=== PATIENT | female | born 1965 | race Caucasian/White ===

== ENCOUNTER 2024-07-30 03:25 | Observation (INO) ==
--- NOTE | 2024-07-30 03:45 | Emergency Department Note ---
ED Provider Note CHIEF COMPLAINT: [] HISTORY OF PRESENTING ILLNESS: [] REVIEW OF SYSTEMS: See HPI for pertinent positives and pertinent negatives. ALLERGIES: [] MEDICATIONS: [] PAST MEDICAL HISTORY: [] PHYSICAL EXAM: [] DIFFERENTIAL DIAGNOSIS: [] ED COURSE AND MEDICAL DECISION MAKING: HISTORY FROM INDEPENDENT HISTORIAN: [] MEDICATIONS GIVEN: [] MONITOR: Continuous vehicle monitor technician: Order was placed for continuous vehicle monitor technician. Patient was placed on the vehicle monitor technician and continuous pulse ox. Patient was noted to be in normal sinus rhythm at an initial rate of [] bpm per my interpretation. EKG: EKG was interpreted by myself as []. INTERPRETATION OF LABS: I interpreted the labs with full lab results as below in the lab section of this note. Pertinent lab results discussed in the MDM section below. INTERPRETATION OF IMAGING: Imaging studies were interpreted by myself and read by radiology as per the imaging section of this note. [] EXTERNAL RECORDS REVIEWED: [] CHRONIC MEDICAL/SOCIAL CONDITIONS AFFECTING CARE: [] ESCALATION OF CARE CONSIDERED: [] CONSULTATIONS: [] PROCEDURES: [] MDM SUMMARY: I examined the patient. An IV lock was placed and labs were drawn. []. The patient was educated on the treatment plan and the discharge instructions. The patient was discharged home in stable condition. DIAGNOSIS: [] The chart was completed utilizing [employer] Speech voice recognition software. Grammatical errors, random word insertions, pronoun errors, and incomplete sentences are an occasional consequence of this system due to software limitations, ambient noise, and hardware issues. Any formal questions or concerns about the content, text, or information contained within the body of this dictation should be directly addressed to the provider for clarification. TREATMENT PLAN/DISCHARGE INSTRUCTIONS: [] Past Med/Surg History Problem List (Updated 07/27/24 @ 08:29 by Salvatore Song DO) Strain of lumbar region (Acute) Lumbar radiculopathy, acute (Acute) Acute bronchitis due to human metapneumovirus (Acute) Social History Smoking Status: Current every day smoker Tobacco Type: Cigarettes Preferred Language: Khmer Feels Safe at Home: Yes Allergies Allergies Allergy/AdvReac Type Severity Reaction Status Date / Time No Known Allergies Allergy Verified 07/22/24 13:50 Home Meds Home Medications Medication Instructions Recorded Confirmed lamotrigine 150 mg tablet 150 mg PO DAILY 01/28/24 07/27/24 (Lamictal) levothyroxine 50 mcg capsule 50 mcg PO DAILY 01/28/24 07/27/24 spironolactone 50 mg tablet 50 mg PO DAILY 01/28/24 07/27/24 bupropion HCl 150 mg tablet,12 hr 150 mg PO QAM 07/27/24 07/27/24 sustained-release tizanidine 4 mg tablet 4 mg PO BID PRN Muscle Spasms 07/27/24 07/27/24 Previous Rx's Medication Instructions Recorded oxycodone 5 mg tablet 5 mg PO Q6H PRN pain #10 tabs 07/27/24 oxycodone 5 mg tablet 5 mg PO Q6H PRN pain #10 tabs 07/27/24 Results & Data (ED) Vital Signs Vital Signs - 24 hr 07/30/24 03:27 Temperature 36.3 C L Temperature Source Temporal Artery Scan Pulse Rate 61 Pulse Rhythm Regular Pulse Strength Normal Respiratory Rate 18 Respiratory Effort / Characteristics Non-Labored Spontaneous Respiratory Depth Normal Respiratory Pattern Regular Blood Pressure 150/94 H Blood Pressure Mean 112 Blood Pressure Position Sitting Pulse Oximetry 99 Oxygen Delivery Method Room Air Sepsis Recent Fever Within 48 Hours No Sepsis New/Unexplained Change in Mental Status N/A Sepsis Action Taken by Nursing No Action Required Discharge Plan Visit Data Chief Complaint: Back Injury/Pain Stated Complaint: SEVERE BACK PAIN ED Provider: Leander Hickman ED Midlevel Provider: Yany Atkins Forms Stand Alone Forms: [facility] VBI Vaccines Prescriptions Prescriptions: No Action levothyroxine 50 mcg capsule 50 mcg PO DAILY spironolactone 50 mg tablet 50 mg PO DAILY lamotrigine [Lamictal] 150 mg tablet 150 mg PO DAILY oxycodone 5 mg tablet 5 mg PO Q6H PRN (Reason: pain) Qty: 10 0RF oxycodone 5 mg tablet 5 mg PO Q6H PRN (Reason: pain) Qty: 10 0RF bupropion HCl 150 mg tablet sustained-release 12 hr 150 mg PO QAM tizanidine 4 mg tablet 4 mg PO BID PRN (Reason: Muscle Spasms) Referrals Referrals: Odette Cheng PA-C [Primary Care Provider] -
[2024-07-30] MEDS: LIDOCAINE 5% 1 PATCH TD STA (04:17)
[2024-07-30] MEDS: ACETAMINOPHEN 500 MG TAB PO STA (04:17)
[2024-07-30] MEDS: dexAMETHasone**PF** 10 MG/ML VIAL IV ONE (04:18)
[2024-07-30] MEDS: KETOROLAC TROMETHAMINE 15 MG/ML VIAL IV ONE (04:18)
[2024-07-30 04:29] LABS: Basophils # (auto) 0.04 K/uL (0.00-0.20); Basophils % (auto) 0.3 %; Eosinophils # (auto) 0.18 K/uL (0.00-0.50); Eosinophils % (auto) 1.3 %; Hemoglobin 15.2 g/dl (12.0-16.0); Immature Granulocytes % (auto) 0.7 %; Lymphocytes % (auto) 25.8 %; Mean Corpuscular Hemoglobin 32.5 pg (25.0-34.0); Mean Corpuscular Hgb Conc 35.3 g/dL (32.0-36.0); Mean Corpuscular Volume 91.9 fL (80.0-100.0); Mean Platelet Volume 9.3 fL (9.4-12.4); Monocytes # (auto) 0.96 K/uL (0.11-0.59); Monocytes % (auto) 7.1 %; Neutrophils # (auto) 8.78 K/uL (1.40-6.50); Neutrophils % (auto) 64.8 %; Platelet Count 438 K/uL (130-400); RDW Coefficient of Variation 12.5 % (11.5-14.5); RDW Standard Deviation 41.9 fL (36.4-46.3); Red Blood Count 4.68 M/uL (4.20-5.40); White Blood Count 13.56 K/ul (4.8-10.8)
[2024-07-30] MEDS: METHOCARBAMOL 500 MG TABLET PO STA (04:51)
[2024-07-30 04:53] LABS: Alanine Aminotransferase 42 U/L (7-52); Albumin Globulin Ratio 1.4 (0.9-2); Albumin Level 4.5 gm/dl (3.4-5.0); Alkaline Phosphatase 84 U/L (34-104); Anion Gap 10 (3-11); BUN Creatinine Ratio 15.5 (10-20); Bilirubin,Total 0.3 mg/dl (0.2-1.0); Blood Urea Nitrogen 15 mg/dl (6-23); Calcium 9.7 mg/dl (8.6-10.3); Carbon Dioxide 25 mmol/L (21-32); Chloride 96 mmol/L (98-107); Creatinine Clr Calc Pharmacy 75.7 ml/min; Globulin 3.3 gm/dl (2.5-4.0); Glucose 92 mg/dl (70-99(Fasting)); Sodium 131 mmol/L (136-145); Total Protein 7.8 gm/dl (6.0-8.3)
[2024-07-30] MEDS: MoRPHine SULFATE 4 MG/ML 1 ML CARP\\VIAL IV STA ×2 (05:14→06:26)
[2024-07-30 06:33] LABS: Potassium 4.9 mmol/L (3.5-5.1)
--- NOTE | 2024-07-30 06:40 | CT Scan Report ---
EXAM: CT lumbar spine wo con CLINICAL HISTORY: severe pain TECHNIQUE: Multiple contiguous axial images were obtained through the lumbar spine without IV contrast. Sagittal and coronal reformatted images were obtained from the axial data. CT scan was performed according to ALARA (as low as reasonably achievable). 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 Decreased disc height with end plate irregularities and end plate hyper-aatenuation seen at L4/L5 and L5/S1 levels. Multiple level anterior marginal osteophytes seen. Posterior disc bulges at L2/L3 and L3/L4 levels. Posterior disc osteophyte complex at L4/L5 and L5/S1 levels causing moderate to severe bilateral lateral recess and neural foraminal stenosis. Lumbar vertebral bodies are maintained in height and alignment. No vertebral destructive changes are seen. IMPRESSION: 1. Lumbar spondylosis. 2. Suggested MRI Lumbar spine for further evaluation. Electronically signed by Dhaval Dooley 07-30-2024 06:39 AM
--- NOTE | 2024-07-30 07:40 | History & Physical Report ---
Date of Service July 30, 2024 Assessment & Plan (1) Lumbar radiculopathy, acute: Plan: Lumbar spinal stenosis with radiculopathy Lumbar disc disease Ambulatory dysfunction secondary to above --Lumbar CT:Loss of lumbar lordotic curvature. Decreased disc height with end plate irregularities and end plate hyper-aatenuation seen at L4/L5 and L5/S1 levels. Multiple level anterior marginal osteophytes seen. Posterior disc bulges at L2/L3 and L3/L4 levels. Posterior disc osteophyte complex at L4/L5 and L5/S1 levels causing moderate to severe bilateral lateral recess and neural foraminal stenosis. Lumbar vertebral bodies are maintained in height and alignment. No vertebral destructive changes are seen. --MRI Lumbar Spine pending --Started on Medrol Dosepak --Pain control as needed --Orthopedic spine consulted --PT OT, fall precautions Leukocytosis Likely reactive No signs of infection Monitor for now Hyponatremia Hypochloremia Sodium 131 Gentle IV fluids Monitor electrolytes Recent metapneumovirus infection No symptoms currently Monitor Vitamin D deficiency Check vitamin D levels Continue supplements Other chronic conditions: Depression Adjustment disorder Hypothyroidism Bipolar disorder Continue home medications as able DVT Px: Code Status Disposition PT OT prior to discharge History of Present Illness Chief Complaint: Low back pain Primary Care Provider: Odette Cheng PA-C Patient is a 59-year-old female with history of depression, adjustment disorder, hypothyroidism, bipolar disorder, dyspepsia MARY stage I, vitamin D deficiency and other medical problems presents with history of ongoing worsening lower back pain since 1 week duration. States back pain radiating down both lower extremities resulting in ambulatory dysfunction. Denies any fall, trauma. Back pain worsens with activity. She has been recently started on prednisone taper course and muscle relaxant which only mildly improved. Also admits to have some numbness and tingling of lower extremities. She recently had some bronchitis secondary to metapneumovirus which currently resolved. Denies any history of chest pain, dyspnea, palpitations, dizziness, pedal edema, cough, fever, chills, fall, head trauma, headache, change in vision, nausea, vomiting, abdominal pain, diarrhea, dysuria, hematuria. Allergies Allergy/AdvReac Type Severity Reaction Status Date / Time No Known Allergies Allergy Verified 07/22/24 13:50 Home Medications Medication Instructions Recorded Confirmed Type lamotrigine 150 mg tablet 150 mg PO DAILY 01/28/24 07/30/24 History (Lamictal) levothyroxine 50 mcg capsule 50 mcg PO DAILY 01/28/24 07/30/24 History spironolactone 50 mg tablet 50 mg PO DAILY 01/28/24 07/30/24 History bupropion HCl 150 mg tablet,12 hr 150 mg PO QAM 07/27/24 07/30/24 History sustained-release oxycodone 5 mg tablet 5 mg PO Q6H PRN pain #10 tabs 07/27/24 07/30/24 Rx tizanidine 4 mg tablet 0.5 mg PO Q6H PRN Muscle Spasms 07/27/24 07/30/24 History Past Med/Surg History Problem List Strain of lumbar region (Acute) Lumbar radiculopathy, acute (Acute) Acute bronchitis due to human metapneumovirus (Acute) Social History Smoking Status: Former smoker Tobacco Type: Cigarettes Second Hand Exposure: No; Do You Dip or Chew Tobacco: No; Tobacco Cessation Education Requested by Patient: No Hx Alcohol Use: No Hx Substance Use: No Preferred Language: Martiniquais Communication Ability: Effective Pre Sales Architect Required: No Beliefs That Will Affect Care: None Current Living Situation: Spouse Other Information That Helps Us Care for You: No Feels Safe at Home: Yes Safety Concerns: Feels Safe At This Time Review of Systems Review of Systems: All systems reviewed & are unremarkable except as noted in HPI & below Physical Exam Physical Exam: Physical Exam: Vitals signs as noted above General Appearance:Moderately built and nourished, no apparent distress Head: normocephalic, Atraumatic Eyes: normal inspection, EOMI Neck: supple, Trachea midline Respiratory/Chest: Normal breath sounds, CTA, No accessory muscle use Cardiovascular: S1, S2, No murmur Abdomen/GI:Soft, Non tender, Bowel sounds present Extremities/Musculoskeletal:normal inspection, no edema, mild lower backwinder, + straight leg raise test Neurologic/Psych:AAOX3, grossly no focal neurological deficits Skin: normal color, warm Results & Data Results & Data Vital Signs (Past 12 Hours) Vital Signs Temp Pulse Pulse Resp BP BP Pulse Ox 07/30/24 06:30 56 L 20 158/92 H 96 07/30/24 06:00 56 L 20 147/78 H 97 07/30/24 05:30 68 20 155/59 H 98 07/30/24 05:00 64 20 169/84 H 98 07/30/24 04:30 68 20 165/97 H 98 07/30/24 03:27 36.3 C L 61 18 150/94 H 99 O2 Del Method 07/30/24 06:30 Room Air 07/30/24 06:00 Room Air 07/30/24 05:30 Room Air 07/30/24 05:00 Room Air 07/30/24 04:30 Room Air 07/30/24 03:27 Room Air Laboratory Results Short CBC 07/30/24 Range/Units 04:10 WBC 13.56 H (4.8-10.8) K/ul Hgb 15.2 (12.0-16.0) g/dl Hct 43.0 (37.0-47.0) % Plt Count 438 H (130-400) K/uL BMP 07/30/24 07/30/24 04:10 05:18 Sodium 131 L Potassium TNP 4.9 Chloride 96 L Carbon Dioxide 25 BUN 15 Creatinine 0.97 Glucose 92 Calcium 9.7 Liver Function 07/30/24 07/30/24 Range/Units 04:10 05:18 Total Bilirubin 0.3 (0.2-1.0) mg/dl AST TNP 21 ALT 42 (7-52) U/L Alkaline Phosphatase 84 (34-104) U/L Albumin 4.5 (3.4-5.0) gm/dl Diagnostic Findings Lumbar CT:Lumbar spondylosis. Lumbar disc disease, foraminal stenosis
[2024-07-30] MEDS: SODIUM CHLORIDE 0.9% 1,000 ML IV ONE (08:24)
[2024-07-30] MEDS ORDERED: methylPREDNISolone 4 MG TAB, 6 DAY TAPER PO SCH (09:55)
[2024-07-30] MEDS ORDERED: ONDANSETRON INJ 2 MG/ML 2 ML VIAL IV PRN (09:55)
[2024-07-30] MEDS ORDERED: POLYETHYLENE (MIRALAX) 17 GM PACK PO PRN (09:55)
[2024-07-30] MEDS ORDERED: DOCUSATE SODIUM 100 MG CAP PO PRN (09:55)
[2024-07-30] MEDS: tiZANidine HCL 4 MG TABLET PO PRN (10:44)
[2024-07-30] MEDS: oxyCODONE HCL IR 5 MG TAB (IMMEDIATE RELEASE) PO PRN (10:46)
[2024-07-30] MEDS: ACETAMINOPHEN 325 MG TAB PO PRN (10:46)
[2024-07-30] MEDS: buPROPion SR 150 MG TABCR PO SCH (10:47)
[2024-07-30] MEDS: SPIRONOLACTONE 25 MG TAB PO SCH (10:48)
[2024-07-30] MEDS: methylPREDNISolone 4 MG TAB PO SCH ×2 (10:48→12:23)
[2024-07-30] MEDS: CYCLOBENZAPRINE HCL 5 MG TAB PO ONE (13:19)
--- NOTE | 2024-07-30 14:49 | Magnetic Resonance Report ---
Exam: MR lumbar spine without contrast. History: Low back pain. Comparison: CT cervical spine correlate 30 July 2024 and plain film correlate 27 July 2024. Technique: Routine multiplanar multisequence MR images of the lumbar spine without contrast were obtained and reviewed. Findings: Note is made that the lowest fully formed intervertebral disc will be labeled L5-S1 for purposes of this dictation. Marrow signal demonstrates no occult fracture or edema. Decree signal changes ventral L4 and L5 vertebral bodies on all sequences corresponding to sclerotic changes on prior CT. Lumbar spine alignment is fairly well-maintained. Mild stepwise retrolisthesis L2 on L3 L3 on L4. Intervertebral disc demonstrate multilevel disc desiccation height loss with associated osteophytes most marked at the L4-L5 L5-S1 levels. Conus terminates at the L1 level with normal signal and caliber. Axial series demonstrate level by level: L1-L2 level demonstrates patent spinal canal and neuroforamina. L2-L3 level demonstrates mild ligamentum flavum thickening. Mild circumferential disc bulge. No significant spinal canal or foraminal narrowing. L3-L4 level demonstrates prominent bilateral facet joint fluid. Mild broad-based posterior disc bulge. Increased fluid sensitive signal along the central posterior annulus consistent with annular fissuring. Mild foraminal and spinal canal stenoses. L4-L5 level demonstrates ligamentum flavum thickening and facet arthropathy changes. Circumferential disc osteophyte complex with near complete effacement of the thecal sac CSF. This is consistent with moderate spinal canal narrowing. Additional moderate bilateral foraminal stenoses. L5-S1 level demonstrated circumferential disc osteophyte complex. Mild ligamentum flavum thickening and facet arthropathy changes. Moderate foraminal narrowing. Mild spinal canal narrowing. Included retroperitoneal structures are within normal limits. Paraspinous musculature is within normal limits. Impression: Multilevel degenerative changes with moderate spinal canal and foraminal stenoses most marked at the L4-L5 L5-S1 levels. No acute process. Please see above for details. Electronically signed by Cricket Antonio 07-30-2024 2:49 PM
[2024-07-30 15:20] LABS: Appearance Urine Clear (Clear); Bilirubin Urine Negative (Negative); Blood Urine Negative (Negative); Color Urine Yellow; Glucose Urine UA Negative (Negative); Ketones Urine Negative (Negative); Leukocyte Esterase Urine Negative (Negative); Nitrite Urine Negative (Negative); Protein Urine Negative (Negative); Specific Gravity Urine 1.008 (1.000-1.030); Urobilinogen Urine Negative (Negative)
[2024-07-31] MEDS: LEVOTHYROXINE SODIUM 50 MCG TABLET PO SCH (05:58)
[2024-07-31] MEDS: methylPREDNISolone 4 MG TAB PO SCH ×2 (05:59→20:08)
[2024-07-31 07:09] LABS: Hematocrit (blood only) 42.8 % (37.0-47.0); Hemoglobin 14.9 g/dl (12.0-16.0); Mean Corpuscular Hemoglobin 32.7 pg (25.0-34.0); Mean Corpuscular Hgb Conc 34.8 g/dL (32.0-36.0); Mean Corpuscular Volume 94.1 fL (80.0-100.0); Mean Platelet Volume 9.2 fL (9.4-12.4); Platelet Count 440 K/uL (130-400); RDW Coefficient of Variation 12.5 % (11.5-14.5); RDW Standard Deviation 43.4 fL (36.4-46.3); Red Blood Count 4.55 M/uL (4.20-5.40); White Blood Count 16.77 K/ul (4.8-10.8)
[2024-07-31] MEDS: MoRPHine SULFATE 2 MG/ML CARP IV PRN (07:15)
[2024-07-31 07:23] LABS: Calcium 9.5 mg/dl (8.6-10.3); Magnesium 2.3 mg/dl (1.7-2.4); Potassium 4.2 mmol/L (3.5-5.1)
[2024-07-31 07:28] LABS: BUN Creatinine Ratio 18.4 (10-20); Creatinine Clr Calc Pharmacy 79.5 ml/min
[2024-07-31 07:54] LABS: Thyroid Stimulating Hormone 1.029 uIu/ml (0.300-4.500)
--- NOTE | 2024-07-31 08:25 | Consultation ---
Date of Consultation July 31, 2024 Assessment & Plan (1) Lumbar radiculopathy, acute: Maria Luz is a 59-year-old female who presented to the ER with subsequent admission due to back pain and lower extremity paresthesias. Her pain is improving overnight. She has multilevel degenerative disc disease in her lumbar spine with modest/mild foraminal narrowing. Would not recommend aggressive surgical intervention. We have discussed pursuing pain management consultation. She is in agreement to this. Activity as tolerated. Agree with physical therapy/Occupational Therapy consult. She can follow-up in our office as an on an as-needed basis. History of Present Illness Attending Physician: Abraham Thapa MD History of Present Illness This is a pleasant 59-year-old female who was admitted via the emergency room yesterday for back and bilateral lower extremity paresthesias. Symptoms have been ongoing for about a week. No accident, trauma, fall. She saw her family physician who gave her a muscle relaxant and oral steroids with modest improvement. She describes her symptoms as more back spasms rating down both legs right is worse than left. Nothing is really able to reproduce the symptoms. She states they are random. She has been taking Advil at home for pain control. Denies bowel or bladder dysfunction. 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 She states overnight she since admission she her symptoms are improved. She is anxious to return home. Allergies Allergy/AdvReac Type Severity Reaction Status Date / Time No Known Allergies Allergy Verified 07/22/24 13:50 Home Medications Medication Instructions Recorded Confirmed Type lamotrigine 150 mg tablet 150 mg PO DAILY 01/28/24 07/30/24 History (Lamictal) levothyroxine 50 mcg capsule 50 mcg PO DAILY 01/28/24 07/30/24 History spironolactone 50 mg tablet 50 mg PO DAILY 01/28/24 07/30/24 History bupropion HCl 150 mg tablet,12 hr 150 mg PO QAM 07/27/24 07/30/24 History sustained-release tizanidine 4 mg tablet 0.5 mg PO Q6H PRN Muscle Spasms 07/27/24 07/30/24 History oxycodone 5 mg tablet 5 mg PO Q6H PRN pain #10 tabs 08/01/24 Rx Patient History Medical History (Updated 08/01/24 @ 10:52 by Slime Peters DO) Lumbar radiculopathy, acute Lumbar spinal stenosis Acute bronchitis due to human metapneumovirus Social History Smoking Status: Former smoker Tobacco Type: Cigarettes Second Hand Exposure: No; Do You Dip or Chew Tobacco: No; Tobacco Cessation Education Requested by Patient: No Hx Alcohol Use: No Hx Substance Use: No Preferred Language: Latvian Communication Ability: Effective Pecan Mallow Dipper Required: No Beliefs That Will Affect Care: None Current Living Situation: Spouse Other Information That Helps Us Care for You: No Feels Safe at Home: Yes Safety Concerns: Feels Safe At This Time Review of Systems Review of Systems: All systems reviewed & are unremarkable except as noted in HPI & below Physical Exam Physical Exam: She is laying in bed in no acute distress She sits up and rolls over with the ease in no distress Alert and oriented x 3 Nontender to palpations of the midline lumbar spine and also nontender to ovat ion over the bilateral sciatic notch regions 5/5 bilateral EHL, dorsiflexion, plantar flexion, quadriceps, hamstrings, hip flexors No evidence of ankle clonus bilaterally Results & Data Vital Signs (Past 12 Hours) Vital Signs Temp Pulse Resp BP Pulse Ox O2 Del Method 07/31/24 07:46 36.6 C 59 L 18 143/81 H 96 Room Air Diagnostic Findings [place], [place] [phone] Magnetic Resonance Report Patient: TENA WATKINS Admit Date: 07/30/24 MR#: [id number] Address1: [facility] [address] Acct ID:[id number] Address2: Date: 1965 [facility] Zip: [place] [address] Age: 59 Location: 3N Sex: F Room/Bed: [facility] Att Phy: Abraham Thapa MD Diagnosis: BACK PAIN Samantha Phy: Odette Chneg PA-C Service Date: 07/30/24 Fam Phy: Interpreting Phy: Cricket Antonio MDAdmit Phy: Abraham Thapa MD Ordering Phy: Abraham Thapa MD cc: ~ Exam: MR lumbar spine without contrast. History: Low back pain. Comparison: CT cervical spine correlate 30 July 2024 and plain film correlate 27 July 2024. Technique: Routine multiplanar multisequence MR images of the lumbar spine without contrast were obtained and reviewed. Findings: Note is made that the lowest fully formed intervertebral disc will be labeled L5-S1 for purposes of this dictation. Marrow signal demonstrates no occult fracture or edema. Decree signal changes ventral L4 and L5 vertebral bodies on all sequences corresponding to sclerotic changes on prior CT. Lumbar spine alignment is fairly well-maintained. Mild stepwise retrolisthesis L2 on L3 L3 on L4. Intervertebral disc demonstrate multilevel disc desiccation height loss with associated osteophytes most marked at the L4-L5 L5-S1 levels. Conus terminates at the L1 level with normal signal and caliber. Axial series demonstrate level by level: L1-L2 level demonstrates patent spinal canal and neuroforamina. L2-L3 level demonstrates mild ligamentum flavum thickening. Mild circumferential disc bulge. No significant spinal canal or foraminal narrowing. L3-L4 level demonstrates prominent bilateral facet joint fluid. Mild broad-based posterior disc bulge. Increased fluid sensitive signal along the central posterior annulus consistent with annular fissuring. Mild foraminal and spinal canal stenoses. L4-L5 level demonstrates ligamentum flavum thickening and facet arthropathy changes. Circumferential disc osteophyte complex with near complete effacement of the thecal sac CSF. This is consistent with moderate spinal canal narrowing. Additional moderate bilateral foraminal stenoses. L5-S1 level demonstrated circumferential disc osteophyte complex. Mild ligamentum flavum thickening and facet arthropathy changes. Moderate foraminal narrowing. Mild spinal canal narrowing. Included retroperitoneal structures are within normal limits. Paraspinous musculature is within normal limits. Impression: Multilevel degenerative changes with moderate spinal canal and foraminal stenoses most marked at the L4-L5 L5-S1 levels. No acute process. Please see above for details. Electronically signed by Cricket Antonio 07-30-2024 2:49 PM Dictated: 07/30/24 1410 Transcribed: [facility], [place] [phone] CT Scan Report Patient: TENA WATKINS Admit Date: 07/30/24 MR#: [id number] Address1: [address] Acct ID:[id number] Address2: Date: 1965 [facility] Zip: [place] [address] Age: 59 Location: ED Sex: F Room/Bed: Att Phy: Diagnosis: SEVERE BACK PAIN Samantha Phy: Skylar [address] Service Date: 07/30/24 [facility] Phy: Interpreting Phy: Dhaval Clement MDAdmit Phy: Ordering Phy: Yany Atkins CRNP cc: ~ EXAM: CT lumbar spine wo con CLINICAL HISTORY: severe pain TECHNIQUE: Multiple contiguous axial images were obtained through the lumbar spine without IV contrast. Sagittal and coronal reformatted images were obtained from the axial data. CT scan was performed according to ALARA (as low as reasonably achievable). COMPARISON: 07/27/2024 06:48:14 SENIOR ETL DEVELOPER FINDINGS: Loss of lumbar lordotic curvature. Decreased disc height with end plate irregularities and end plate hyper-aatenuation seen at L4/L5 and L5/S1 levels. Multiple level anterior marginal osteophytes seen. Posterior disc bulges at L2/L3 and L3/L4 levels. Posterior disc osteophyte complex at L4/L5 and L5/S1 levels causing moderate to severe bilateral lateral recess and neural foraminal stenosis. Lumbar vertebral bodies are maintained in height and alignment. No vertebral destructive changes are seen. IMPRESSION: 1. Lumbar spondylosis. 2. Suggested MRI Lumbar spine for further evaluation. Electronically signed by Dhaval Clement 07-30-2024 06:39 AM Dictated: 07/30/24 05 Transcribed: [facility], [place] [phone] XRay Report Patient: TENA WATKINS Admit Date: 07/27/24 MR#: [id number] Address1: [address] Acct ID:[id number] Address2: Date: 1965 [facility] Zip: [place] [address] Age: 59 Location: ED Sex: F Room/Bed: Att Phy: Diagnosis: back pain Samantha Phy: [address] Service Date: 07/27/24 [facility] Phy: Interpreting Phy: Tavon Pinedo MDAdmit Phy: Ordering Phy: Salvatore Song DO cc: ~ EXAM: XR lumbar spine 2-3V CLINICAL HISTORY: lower back pain. TECHNIQUE: X-ray images of the lumbar spine were obtained in anteroposterior (AP), spot L5, and lateral projections. COMPARISON: No prior studies available for comparison. FINDINGS: Alignment: Straightening of the lumbar spine seen likely due to muscular spasm. No abnormal curvature, such as scoliosis or lordosis. Facet joints and sacroiliac joints appear normal. Mild grade 1 retrolisthesis of L5 over S1 vertebra noted. Vertebral Bodies: Vertebral bodies are of normal height and morphology. No evidence of fractures, compression deformities, or significant osseous lesions. Marginal osteophytes are seen at multiple levels. Intervertebral Disc Spaces: Reduced intervertebral disc spaces seen at L4-L5 and L5-S1 levels. Soft Tissues: Paraspinal soft tissues are of normal thickness. No evidence of paraspinal soft tissue swelling or mass effect. Additional Findings: Fecal loaded bowel loops. IMPRESSION: 1. Straightening of the lumbar spine seen likely due to muscular spasm. 2. Mild to moderate lumbar spondylosis. 3. Mild grade 1 retrolisthesis of L5 over S1 vertebra noted. Disclaimer: A subtle bone abnormality or fracture may not be readily apparent on X-rays, thus clinical correlation and further imaging including follow-up CT, MRI, or follow-up X-rays are advised as needed. Electronically signed by Tavon Pinedo 07-27-2024 08:18 AM Dictated: 07/27/24 0748 Transcribed:
[2024-07-31] MEDS: lamoTRIgine 100 MG TAB PO SCH (09:02)
[2024-07-31] MEDS: CHOLECALCIFEROL 25 MCG (1000 UNITS) TAB PO SCH (09:02)
--- NOTE | 2024-07-31 14:15 | Hospitalist Progress Note ---
Date of Service July 31, 2024 Assessment & Plan (1) Lumbar radiculopathy, acute: Plan: Lumbar spinal stenosis with radiculopathy Lumbar disc disease Ambulatory dysfunction secondary to above --Lumbar CT:Loss of lumbar lordotic curvature. Decreased disc height with end plate irregularities and end plate hyper-aatenuation seen at L4/L5 and L5/S1 levels. Multiple level anterior marginal osteophytes seen. Posterior disc bulges at L2/L3 and L3/L4 levels. Posterior disc osteophyte complex at L4/L5 and L5/S1 levels causing moderate to severe bilateral lateral recess and neural foraminal stenosis. Lumbar vertebral bodies are maintained in height and alignment. No vertebral destructive changes are seen. --MRI Lumbar Spine:Multilevel degenerative changes with moderate spinal canal and foraminal stenoses most marked at the L4-L5 L5-S1 levels. No acute process --continue Medrol Dosepak --Pain control as needed -- Appreciate orthopedic spine input --PT OT evaluation pending -- Pain management consulted for possible epidural injection Leukocytosis Likely reactive, due to steroids No signs of infection Monitor for now Hyponatremia Hypochloremia Sodium 134 today Received IV fluids Monitor electrolytes Recent metapneumovirus infection No symptoms currently Monitor Vitamin D deficiency Continue vitamin D supplements Other chronic conditions: Depression Adjustment disorder Hypothyroidism Bipolar disorder Continue home medications as able DVT Px: Code Status Disposition PT OT prior to discharge Admission and Anticipated Discharge Date Admission Date: July 30, 2024 Subjective Patient is seen and examined at bedside Lower back pain is controlled with medications No new complaints today Denies any chest pain, dyspnea, nausea, vomiting, abdominal pain Review of Systems Review of Systems: All systems reviewed & are unremarkable except as noted in Subjective Physical Exam Physical Exam: Physical Exam: Vitals signs as noted above General Appearance:Moderately built and nourished, no apparent distress Head: normocephalic, Atraumatic Eyes: normal inspection, EOMI Neck: supple, Trachea midline Respiratory/Chest: Normal breath sounds, CTA, No accessory muscle use Cardiovascular: S1, S2, No murmur Abdomen/GI:Soft, Non tender, Bowel sounds present Extremities/Musculoskeletal:normal inspection, no edema, mild lower back winder, + straight leg raise test Neurologic/Psych:AAOX3, grossly no focal neurological deficits Skin: normal color, warm Results & Data Results & Data Vital Signs (Past 12 Hours) Vital Signs Temp Pulse Resp BP Pulse Ox O2 Del Method 07/31/24 07:46 36.6 C 59 L 18 143/81 H 96 Room Air Laboratory Results Short CBC 07/31/24 Range/Units 06:43 WBC 16.77 H (4.8-10.8) K/ul Hgb 14.9 (12.0-16.0) g/dl Hct 42.8 (37.0-47.0) % Plt Count 440 H (130-400) K/uL BMP 07/31/24 06:43 Sodium 134 L Potassium 4.2 Chloride 99 Carbon Dioxide 26 BUN 16 Creatinine 0.87 Glucose 116 H Calcium 9.5 Urine 07/30/24 Range/Units Unknown Urine Color Yellow Urine Appearance Clear (Clear) Urine pH 8.0 H (4.5-7.5) Ur Specific Fielding 1.008 (1.000-1.030) Urine Protein Negative (Negative) Urine Glucose (UA) Negative (Negative)
[2024-07-31 20:29] VITALS: RESP 16
[2024-08-01] MEDS: methylPREDNISolone 4 MG TAB PO SCH (06:32)
[2024-08-01 07:11] VITALS: BP 157/84; PULSE 60; TEMP 97.3; O2SAT 99
[2024-08-01 07:12] LABS: Hemoglobin 14.9 g/dl (12.0-16.0); Mean Corpuscular Hgb Conc 33.9 g/dL (32.0-36.0); Mean Corpuscular Volume 94.6 fL (80.0-100.0); Mean Platelet Volume 9.4 fL (9.4-12.4); Platelet Count 430 K/uL (130-400); RDW Coefficient of Variation 13.3 % (11.5-14.5); RDW Standard Deviation 46.1 fL (36.4-46.3); Red Blood Count 4.65 M/uL (4.20-5.40)
[2024-08-01 07:27] LABS: Calcium 9.4 mg/dl (8.6-10.3); Creatinine Clr Calc Pharmacy 63.4 ml/min
--- NOTE | 2024-08-01 09:06 | Hospitalist Progress Note ---
Date of Service August 01, 2024 Assessment & Plan (1) Lumbar radiculopathy, acute: Plan: Lumbar spinal stenosis with radiculopathy Lumbar disc disease Ambulatory dysfunction secondary to above --Lumbar CT:Loss of lumbar lordotic curvature. Decreased disc height with end plate irregularities and end plate hyper-aatenuation seen at L4/L5 and L5/S1 levels. Multiple level anterior marginal osteophytes seen. Posterior disc bulges at L2/L3 and L3/L4 levels. Posterior disc osteophyte complex at L4/L5 and L5/S1 levels causing moderate to severe bilateral lateral recess and neural foraminal stenosis. Lumbar vertebral bodies are maintained in height and alignment. No vertebral destructive changes are seen. --MRI Lumbar Spine:Multilevel degenerative changes with moderate spinal canal and foraminal stenoses most marked at the L4-L5 L5-S1 levels. No acute process --continue Medrol Dosepak --Pain control as needed -- Appreciate orthopedic spine input --PT OT evaluation -- Appreciate pain management input : Plan for epidural injection as outpatient Plan to be discharged home today Leukocytosis Likely reactive, due to steroids No signs of infection Monitor for now Hyponatremia Hypochloremia Sodium 134 today Received IV fluids Monitor electrolytes Recent metapneumovirus infection No symptoms currently Monitor Vitamin D deficiency Continue vitamin D supplements Other chronic conditions: Depression Adjustment disorder Hypothyroidism Bipolar disorder Continue home medications as able DVT Px: Code Status Disposition Home Admission and Anticipated Discharge Date Admission Date: July 30, 2024 Subjective Patient is seen and examined at bedside Low back pain much improved Offers no new complaints today Denies any chest pain, dyspnea, nausea, vomiting, abdominal pain Eager to get discharged Review of Systems Review of Systems: All systems reviewed & are unremarkable except as noted in Subjective Physical Exam Physical Exam: Physical Exam: Vitals signs as noted above General Appearance:Moderately built and nourished, no apparent distress Head: normocephalic, Atraumatic Eyes: normal inspection, EOMI Neck: supple, Trachea midline Respiratory/Chest: Normal breath sounds, CTA, No accessory muscle use Cardiovascular: S1, S2, No murmur Abdomen/GI:Soft, Non tender, Bowel sounds present Extremities/Musculoskeletal:normal inspection, no edema, 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
--- NOTE | 2024-08-01 10:54 | Pain Management Consultation ---
Date of Consultation August 01, 2024 Assessment & Plan (1) Lumbar spinal stenosis: (2) Lumbar radiculopathy, acute: Plan 1. I reviewed the patient's MRI with her in detail and at this time recommend L4-5 interlaminar epidural steroid injection. She was counseled on the risk, benefits, expectations and agrees to proceed. This will be performed as an outpatient. Currently working on coordinating with my office for later this week. 2. Patient wishes to be discharged today, will relay to the hospitalist team. Recommend discharge with current medications of oxycodone, Tylenol, Medrol Dosepak. 3. Recommend course of physical therapy as an outpatient. 4. Will follow-up with the patient as an outpatient. Thank you for this consultation. History of Present Illness Attending Physician: Abraham Thapa MD History of Present Illness 59-year-old female with 1 week history of 50% axial 50% right L5-S1 radicular symptoms without known trauma or injury. She reports pain is sharp shooting numbing tingling ranging between 4-7+ currently 6 out of 10. She reports mild improvement with oxycodone, tizanidine, and Medrol Dosepak. She denies any bowel or bladder incontinence, motor weakness, fever, foot drop, falls, or saddle anesthesia. She reports some issues with low back pain over the last decade but nothing consistent or to this magnitude. She denies prior evaluation for pain or any interventions. She reports pain is worse with activity better with rest and heat. She reports she would prefer to treat this conservatively rather than with surgery at this time. Pain Assessment Full Body Front + Back: 2 1. 2. [facility] Combined Pain Scale: 6-Mod to Severe - Significant limitations of ADLs. Hard to do anything Pain scale - at its best (0-10): 4 Pain scale - at its worst (0-10): 7 Allergies Allergy/AdvReac Type Severity Reaction Status Date / Time No Known Allergies Allergy Verified 07/22/24 13:50 Home Medications Medication Instructions Recorded Confirmed Type lamotrigine 150 mg tablet 150 mg PO DAILY 01/28/24 07/30/24 History (Lamictal) levothyroxine 50 mcg capsule 50 mcg PO DAILY 01/28/24 07/30/24 History spironolactone 50 mg tablet 50 mg PO DAILY 01/28/24 07/30/24 History bupropion HCl 150 mg tablet,12 hr 150 mg PO QAM 07/27/24 07/30/24 History sustained-release oxycodone 5 mg tablet 5 mg PO Q6H PRN pain #10 tabs 08/01/24 Rx tizanidine 2 mg tablet 2 mg PO Q8H PRN muscle spasticity 08/01/24 Rx #14 tabs Pain History Pain Intensity Pain scale - at its best (0-10): 4 Pain scale - at its worst (0-10): 7 Patient History Medical History (Updated 08/01/24 @ 10:52 by Slime Peters DO) Lumbar radiculopathy, acute Lumbar spinal stenosis Acute bronchitis due to human metapneumovirus Social History Smoking Status: Former smoker Tobacco Type: Cigarettes Second Hand Exposure: No; Do You Dip or Chew Tobacco: No; Hx Alcohol Use: No Hx Substance Use: No Preferred Language: Armenian Communication Ability: Effective Wrapper Rewinder Required: No Beliefs That Will Affect Care: None Current Living Situation: Spouse Feels Safe at Home: Yes Physical Exam 2 Physical Exam: Constitutional: Well-developed, well-nourished, healthy-appearing, normal weight Psych: Awake, alert, and oriented 3 with normal affect and mood. Recent memory appears grossly intact Eyes: Pupils are equally round and reactive to light with normal size pupils, eyelids appear normal Ear, nose, mouth, and throat: Moist nasal and oral membranes, lips and tongues appear normal, no external ear abnormalities are noted Neck: The trachea is midline without deviation Respiratory: Normal respiratory effort without distress, no audible wheezes or rhonchi CV: Normal S1 and S2, warm distal extremities Chest: Deferred GI/abdomen: Non-tender without guarding Musculoskeletal: Head is normocephalic and atraumatic, patient moved from sitting to standing with limited difficulty. Cervical: Lordotic curve: Normal Range of motion is normal with extension, flexion, side-bending, rotation Strength: Strength is grossly equal bilaterally with 5 out of 5 strength in all planes Lumbar: Lordotic curve: Slight loss of lumbar litters Range of motion is decreased with extension, acceptable flexion, side-bending, rotation Tenderness: Moderately tender over the axial midline bilateral left equal to right L4-S1 Facet provocation: Marginally positive bilaterally Straight leg raise: Negative bilaterally not worse with Achilles stretch Step-off injuries: None Strength: Strength is equal bilaterally with 5 out of 5 strength in all planes Sensation of lower extremities: Intact bilaterally Deep tendon reflexes: Rated at 2+ in bilateral L4 and S1 Myofascial spasm: Mild to moderate lumbar spasm. A few scattered discrete trigger points noted Greater trochanters: Nontender bilaterally Sacroiliac joints: Nontender bilaterally Pathologic reflexes noted: None Skin: No rashes, lesions, ulcers, or induration noted Neuro: No nystagmus noted, the tongue is midline, the patient is able to rotate their head bilaterally : Deferred Results (Pain Clinic) Diagnostic Review MRI: non enhanced, reports reviewed and findings discussed with patient MRI Findings: 07/30/24 Exam: MR lumbar spine without contrast. History: Low back pain. Comparison: CT cervical spine correlate 30 July 2024 and plain film correlate 27 July 2024. Technique: Routine multiplanar multisequence MR images of the lumbar spine without contrast were obtained and reviewed. Findings: Note is made that the lowest fully formed intervertebral disc will be labeled L5-S1 for purposes of this dictation. Marrow signal demonstrates no occult fracture or edema. Decree signal changes ventral L4 and L5 vertebral bodies on all sequences corresponding to sclerotic changes on prior CT. Lumbar spine alignment is fairly well-maintained. Mild stepwise retrolisthesis L2 on L3 L3 on L4. Intervertebral disc demonstrate multilevel disc desiccation height loss with associated osteophytes most marked at the L4-L5 L5-S1 levels. Conus terminates at the L1 level with normal signal and caliber. Axial series demonstrate level by level: L1-L2 level demonstrates patent spinal canal and neuroforamina. L2-L3 level demonstrates mild ligamentum flavum thickening. Mild circumferential disc bulge. No significant spinal canal or foraminal narrowing. L3-L4 level demonstrates prominent bilateral facet joint fluid. Mild broad-based posterior disc bulge. Increased fluid sensitive signal along the central posterior annulus consistent with annular fissuring. Mild foraminal and spinal canal stenoses. L4-L5 level demonstrates ligamentum flavum thickening and facet arthropathy changes. Circumferential disc osteophyte complex with near complete effacement of the thecal sac CSF. This is consistent with moderate spinal canal narrowing. Additional moderate bilateral foraminal stenoses. L5-S1 level demonstrated circumferential disc osteophyte complex. Mild ligamentum flavum thickening and facet arthropathy changes. Moderate foraminal narrowing. Mild spinal canal narrowing. Included retroperitoneal structures are within normal limits. Paraspinous musculature is within normal limits. Impression: Multilevel degenerative changes with moderate spinal canal and foraminal stenoses most marked at the L4-L5 L5-S1 levels. No acute process. Please see above for details.
--- NOTE | 2024-08-01 12:44 | Discharge Summary ---
Date of Service August 01, 2024 Admission HPI Per Admitting Provider Patient is a 59-year-old female with history of depression, adjustment disorder, hypothyroidism, bipolar disorder, dyspepsia MARY stage I, vitamin D deficiency and other medical problems presents with history of ongoing worsening lower back pain since 1 week duration. States back pain radiating down both lower extremities resulting in ambulatory dysfunction. Denies any fall, trauma. Back pain worsens with activity. She has been recently started on prednisone taper course and muscle relaxant which only mildly improved. Also admits to have some numbness and tingling of lower extremities. She recently had some bronchitis secondary to metapneumovirus which currently resolved. Denies any history of chest pain, dyspnea, palpitations, dizziness, pedal edema, cough, fever, chills, fall, head trauma, headache, change in vision, nausea, vomiting, abdominal pain, diarrhea, dysuria, hematuria. Admission Exam Per Admitting Provider Physical Exam: Vitals signs as noted above General Appearance:Moderately built and nourished, no apparent distress Head: normocephalic, Atraumatic Eyes: normal inspection, EOMI Neck: supple, Trachea midline Respiratory/Chest: Normal breath sounds, CTA, No accessory muscle use Cardiovascular: S1, S2, No murmur Abdomen/GI:Soft, Non tender, Bowel sounds present Extremities/Musculoskeletal:normal inspection, no edema, mild lower dry cans back tender, + straight leg raise test Neurologic/Psych:AAOX3, grossly no focal neurological deficits Skin: normal color, warm Principal Diagnosis Lumbar spinal stenosis with radiculopathy Lumbar disc disease Discharge Data Allergies Allergy/AdvReac Type Severity Reaction Status Date / Time No Known Allergies Allergy Verified 07/22/24 13:50 Consultations 07/30/24 06:36 ED Decision to Admit Stat 07/30/24 07:56 Consult Orthopedic Surgery Routine 07/31/24 08:28 Consult Pain Management Routine Procedures Performed Laboratory Results WBC 13.70 K/ul (4.8-10.8) H 08/01/24 05:28 RBC 4.65 M/uL (4.20-5.40) 08/01/24 05:28 Hgb 14.9 g/dl (12.0-16.0) 08/01/24 05:28 Hct 44.0 % (37.0-47.0) 08/01/24 05:28 MCV 94.6 fL (80.0-100.0) 08/01/24 05:28 MCH 32.0 pg (25.0-34.0) 08/01/24 05: MCHC 33.9 g/dL (32.0-36.0) 08/01/24 05: RDW Std Deviation 46.1 fL (36.4-46.3) 08/01/24 05: RDW Coeff of Estrellita 13.3 % (11.5-14.5) 08/01/24 05:28 Plt Count 430 K/uL (130-400) H 08/01/24 05:28 MPV 9.4 fL (9.4-12.4) 08/01/24 05:28 Immature Gran % (Auto) 0.7 % 07/30/24 04:10 Neut % (Auto) 64.8 % 07/30/24 04:10 Lymph % (Auto) 25.8 % 07/30/24 04:10 Sullivan % (Auto) 7.1 % 07/30/24 04:10 Eos % (Auto) 1.3 % 07/30/24 04:10 Baso % (Auto) 0.3 % 07/30/24 04:10 Neut # (Auto) 8.78 K/uL (1.40-6.50) H 07/30/24 04:10 Lymph # (Auto) 3.50 K/uL (1.20-3.40) H 07/30/24 04:10 Sullivan # (Auto) 0.96 K/uL (0.11-0.59) H 07/30/24 04:10 Eos # (Auto) 0.18 K/uL (0.00-0.50) 07/30/24 04:10 Baso # (Auto) 0.04 K/uL (0.00-0.20) 07/30/24 04:10 Immature Gran # (Auto) 0.10 K/uL (0.01-0.20) 07/30/24 04:10 Sodium 134 mmol/L (136-145) L 08/01/24 05:28 Potassium 4.0 mmol/L (3.5-5.1) 08/01/24 05:28 Chloride 98 mmol/L (98-107) 08/01/24 05:28 Carbon Dioxide 27 mmol/L (21-32) 08/01/24 05:28 Anion Gap 9 (3-11) 08/01/24 05:28 BUN 24 mg/dl (6-23) H 08/01/24 05:28 Creatinine 1.09 mg/dl (0.6-1.2) 08/01/24 05:28 Est Cr Clr Drug Dosing 63.4 ml/min 08/01/24 05:28 eGFR 58.16 08/01/24 05:28 BUN/Creatinine Ratio 22.0 (10-20) H 08/01/24 05:28 Glucose 105 mg/dl (70-99(Fasting)) H 08/01/24 05:28 Calcium 9.4 mg/dl (8.6-10.3) 08/01/24 05:28 Magnesium 2.3 mg/dl (1.7-2.4) 07/31/24 06:43 Total Bilirubin 0.3 mg/dl (0.2-1.0) 07/30/24 04:10 AST 21 U/L (13-39) 07/30/24 05:18 ALT 42 U/L (7-52) 07/30/24 04:10 Alkaline Phosphatase 84 U/L (34-104) 07/30/24 04:10 Total Protein 7.8 gm/dl (6.0-8.3) 07/30/24 04:10 Albumin 4.5 gm/dl (3.4-5.0) 07/30/24 04:10 Globulin 3.3 gm/dl (2.5-4.0) 07/30/24 04:10 Albumin/Globulin Ratio 1.4 (0.9-2) 07/30/24 04:10 25-OH Vitamin D Total 56.0 ng/ml (30-100) 07/31/24 06:43 Procalcitonin < 0.02 ng/ml (0-0.5) 07/31/24 06:43 TSH 1.029 uIu/ml (0.300-4.500) 07/31/24 06:43 Urine Color Yellow 07/30/24 Unknown Urine Appearance Clear (Clear) 07/30/24 Unknown Urine pH 8.0 (4.5-7.5) H 07/30/24 Unknown Ur Specific [place] 1.008 (1.000-1.030) 07/30/24 Unknown Urine Protein Negative (Negative) 07/30/24 Unknown Urine Glucose (UA) Negative (Negative) 07/30/24 Unknown Urine Ketones Negative (Negative) 07/30/24 Unknown Urine Blood Negative (Negative) 07/30/24 Unknown Urine Nitrite Negative (Negative) 07/30/24 Unknown Urine Bilirubin Negative (Negative) 07/30/24 Unknown Urine Urobilinogen Negative (Negative) 07/30/24 Unknown Ur Leukocyte Esterase Negative (Negative) 07/30/24 Unknown Impressions Lumbar Spine CT 07/30/24 04:02 EXAM: CT lumbar spine wo con CLINICAL HISTORY: severe pain TECHNIQUE: Multiple contiguous axial images were obtained through the lumbar spine without IV contrast. Sagittal and coronal reformatted images were obtained from the axial data. CT scan was performed according to ALARA (as low as reasonably achievable). 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 Decreased disc height with end plate irregularities and end plate hyper-aatenuation seen at L4/L5 and L5/S1 levels. Multiple level anterior marginal osteophytes seen. Posterior disc bulges at L2/L3 and L3/L4 levels. Posterior disc osteophyte complex at L4/L5 and L5/S1 levels causing moderate to severe bilateral lateral recess and neural foraminal stenosis. Lumbar vertebral bodies are maintained in height and alignment. No vertebral destructive changes are seen. IMPRESSION: 1. Lumbar spondylosis. 2. Suggested MRI Lumbar spine for further evaluation. Electronically signed by Dhaval Dooley 07-30-2024 06:39 AM Lumbar Spine MRI 07/30/24 07:57 Exam: MR lumbar spine without contrast. History: Low back pain. Comparison: CT cervical spine correlate 30 July 2024 and plain film correlate 27 July 2024. Technique: Routine multiplanar multisequence MR images of the lumbar spine without contrast were obtained and reviewed. Findings: Note is made that the lowest fully formed intervertebral disc will be labeled L5-S1 for purposes of this dictation. Marrow signal demonstrates no occult fracture or edema. Decree signal changes ventral L4 and L5 vertebral bodies on all sequences corresponding to sclerotic changes on prior CT. Lumbar spine alignment is fairly well-maintained. Mild stepwise retrolisthesis L2 on L3 L3 on L4. Intervertebral disc demonstrate multilevel disc desiccation height loss with associated osteophytes most marked at the L4-L5 L5-S1 levels. Conus terminates at the L1 level with normal signal and caliber. Axial series demonstrate level by level: L1-L2 level demonstrates patent spinal canal and neuroforamina. L2-L3 level demonstrates mild ligamentum flavum thickening. Mild circumferential disc bulge. No significant spinal canal or foraminal narrowing. L3-L4 level demonstrates prominent bilateral facet joint fluid. Mild broad-based posterior disc bulge. Increased fluid sensitive signal along the central posterior annulus consistent with annular fissuring. Mild foraminal and spinal canal stenoses. L4-L5 level demonstrates ligamentum flavum thickening and facet arthropathy changes. Circumferential disc osteophyte complex with near complete effacement of the thecal sac CSF. This is consistent with moderate spinal canal narrowing. Additional moderate bilateral foraminal stenoses. L5-S1 level demonstrated circumferential disc osteophyte complex. Mild ligamentum flavum thickening and facet arthropathy changes. Moderate foraminal narrowing. Mild spinal canal narrowing. Included retroperitoneal structures are within normal limits. Paraspinous musculature is within normal limits. Impression: Multilevel degenerative changes with moderate spinal canal and foraminal stenoses most marked at the L4-L5 L5-S1 levels. No acute process. Please see above for details. Electronically signed by Cricket Antonio 07-30-2024 2:49 PM Ordered Studies 07/30/24 04:02 CT lumbar spine wo con Stat 07/30/24 07:57 MR lumbar spine wo con Routine Hospital Course (1) Lumbar radiculopathy, acute: Lumbar spinal stenosis with radiculopathy Lumbar disc disease Ambulatory dysfunction secondary to above --Lumbar CT:Loss of lumbar lordotic curvature. Decreased disc height with end plate irregularities and end plate hyper-aatenuation seen at L4/L5 and L5/S1 levels. Multiple level anterior marginal osteophytes seen. Posterior disc bulges at L2/L3 and L3/L4 levels. Posterior disc osteophyte complex at L4/L5 and L5/S1 levels causing moderate to severe bilateral lateral recess and neural foraminal stenosis. Lumbar vertebral bodies are maintained in height and alignment. No vertebral destructive changes are seen. --MRI Lumbar Spine:Multilevel degenerative changes with moderate spinal canal and foraminal stenoses most marked at the L4-L5 L5-S1 levels. No acute process --continue Medrol Dosepak --Pain control as needed -- Appreciate orthopedic spine input --PT OT evaluation -- Appreciate pain management input : Plan for epidural injection as outpatient Plan to be discharged home today Leukocytosis Likely reactive, due to steroids No signs of infection Monitor for now Hyponatremia Hypochloremia Sodium 134 today Received IV fluids Monitor electrolytes Recent metapneumovirus infection No symptoms currently Monitor Vitamin D deficiency Continue vitamin D supplements Other chronic conditions: Depression Adjustment disorder Hypothyroidism Bipolar disorder Continue home medications as able DVT Px: Code Status Disposition Home Total Time Total Time Spent Total Time Spent (In Minutes): 44 minutes Discharge Plan Discharge Items Patient Disposition: Home - Self-Care Reason For Visit: BACK PAIN Discharge Diagnosis: Lumbar spinal stenosis with radiculopathy Lumbar disc disease Activity: Per Instructions section Exercise/Sports: Wait until after follow-up appointment Non-emergency contact: Primary Care Provider and Pain Management Call non-emergency contact if: you have any medication questions, your symptoms worsen, your pain is concerning for you and you have a fever Follow-up/Referrals: Odette Cheng PA-C [Primary Care Provider] - (Date & Time 08/08/2024 12:00 PM Provider: Odette Cheng PA-C [facility] ) Diet: Regular Addtl Attending Provider Instructions: Follow-up with your primary care physician Odette Cheng PA-C in 1 week Follow-up with your pain management Dr. Peters for epidural injection as scheduled Seek immediate medical attention if your symptoms reoccur or worsen Please review medication list provided on discharge for any medication changes as instructed. Please call if you have any questions or problems. You can reach a [facility] hospitalist on duty at [facility] 24 hours a day by calling [phone] Pending Studies at Discharge: No Stand-Alone Forms: [facility], Pain - Opioid Pain Management, Smoking Cessation Medications and DC Order Prescriptions: Continued levothyroxine 50 mcg capsule 50 mcg PO DAILY spironolactone 50 mg tablet 50 mg PO DAILY lamotrigine [Lamictal] 150 mg tablet 150 mg PO DAILY bupropion HCl 150 mg tablet sustained-release 12 hr 150 mg PO QAM oxycodone 5 mg tablet 5 mg PO Q6H PRN (Reason: pain) Qty: 10 0RF tizanidine 4 mg tablet 0.5 mg PO Q6H PRN (Reason: Muscle Spasms) Qty: 15 0RF Discharge Orders: Discharge Order (Routine); Ordered 08/01/24 Ordered By: Abraham Roa/Other Patient Handouts: How Your Back Works, ED Sciatica Admission Data Admit Date/Time: 07/30/24 07:56 Attending Provider: Abraham Thapa Admit Provider: Abraham Thapa Primary Care Provider: Odette Cheng Other Providers: Conrado Jacobs; Vladimir Arias; Hao Sandra; Slime Peters; Griffin Owens; Rigoberto Benedict; Marguerite Felix Other Interventions: Discharge Summary Assessment (RN) Last Done: 08/01/24 11:51
[2024-08-02] MEDS ORDERED: methylPREDNISolone 4 MG TAB PO SCH (07:00)
[2024-08-03] MEDS ORDERED: methylPREDNISolone 4 MG TAB PO SCH (07:00)
[2024-08-04] MEDS ORDERED: methylPREDNISolone 4 MG TAB PO SCH (07:00)
== END 2024-08-01 12:42 | disposition home or self-care (01) ==
LOC: ED 03:25 → EDINP 03:25 → 3N 09:56